=== PATIENT | male | born 1950 | race Caucasian/White ===

== ENCOUNTER → 2017-03-16 | Outpatient (CLI) | payer MEDICARE, OTHER ==
[~2017-03-16] MED LIST: AMBIEN10 MG PO; AMOXICILLIN PO; ASPIRIN PO; CHANTIX PO; CLARITIN10 MG PO; COREG PO; LISINOPRIL PO; LORTAB 7.5-5001 TAB PO; NASONEX17 GM; NITROGLYGERIN0.4 MG SL; PROAIR HFA8.5 GM IH; ROBITUSSIN-DM120 ML PO; SIMVASTATIN40 MG PO
[2017-03-16 15:03] LABS: CALCIUM SERUM 8.7 mg/dL (8.4-10.2); GLOM FILT RATE Estimated 78.1 mL/min (>60); POTASSIUM 4.1 mmol/L (3.5-5.1)
== END | disposition home or self-care (01) ==
LOC: CLAB 13:13
PROVIDERS: Internal Medicine Cardiovascular Disease
DX: I50.9 Heart failure, unspecified (principal)
CPT/HCPCS: 36415; 80048